=== PATIENT | female | born 1955 | race Hispanic/Latino ===

== ENCOUNTER 2016-04-27 07:20 | Outpatient (CLI) | payer OTHER ==
[2016-04-27] MEDS ORDERED: XYLOCAINE 1% 20 mL ONE (08:02)
--- NOTE | 2016-04-27 09:35 | Short Stay Summary ---
Invasive Assessment - Date Date of service: 04/27/16 - History & Physical Allergies/Adverse Reactions: Allergies codeine Adverse Reaction (Severe, Unverified 04/27/16 07:22) HALLUCINATIONS - Procedure Note Procedure: Left stereotactic biopsy with clip placement Findings: see path Pathology: list (core biopsy) Specimen disposition: to lab Estimated blood loss: none Tolerated Procedure Well: Yes Complications: none Invasive Assessment DC Note - Disposition Disposition: DISCHARGED TO HOME OR SELFCARE - Instructions Activity: no restrictions Additional Instructions: Use ice pack off and on today Follow up with: STACEY AMAYA DO [Primary Care Provider] - 7 Days LENCHO LAU MD [Staff Physician] - 7 Days
--- NOTE | 2016-04-27 11:03 | Operative Report ---
PREOPERATIVE DIAGNOSIS: Left breast upper inner quadrant abnormal microcalcifications. POSTOPERATIVE DIAGNOSIS: Left breast upper inner quadrant abnormal microcalcifications. PROCEDURE: Left breast stereotactic biopsy with Biomarc clip placement. TYPE OF ANESTHESIA: Local. SURGEON: Wanda Milton MD LOCATION: [facility]. APPROACH: ____ from above. INDICATIONS: This is a 60-year-old woman noted to have abnormal microcalcifications in the left upper inner quadrant of her breast. She required biopsy for diagnosis. DESCRIPTION OF PROCEDURE: The patient was brought to the stereotactic room and laid prone on the table. Her left breast was placed in compression. B[employer] Filling Machine Operator imaging was taken and the area of concern was visualized and the sterotactic imaging were obtained, and the lesion was visualized and was able to be targeted. The breast was then prepped in the usual fashion with Betadine. At the target site, 1% lidocaine was infiltrated at the skin level and the deeper tissue. Next, an 8 gauge mammotome was introduced. Stereotactic images confirmed the placement. The biopsy gun was then fired and again sterotactic images confirmed the placement. Next, circumferential biopsy was performed and core samples were taken. Specimen mammogram showed removal of the calcifications of concern. At this point, a Biomarc clip was then placed and stereotactic images confirmed the placement of the clip. The probe was then removed from the breast, Steri-Strips were applied and a sterile dressing was applied. The patient tolerated the procedure. There were no immediate complications. JOB# [id number] KENZIE/ELLEN
--- NOTE | 2016-04-27 13:10 | Mammography Report ---
Left stereotactic biopsy was performed by Dr. Milton. Please refer to operative report for more detail.
--- NOTE | 2016-04-27 13:12 | Mammography Report ---
LEFT DIGITAL DIAGNOSTIC MAMMOGRAM: 04/27/16 07:20:00 CLINICAL: For clip placement immediately status post stereotactic biopsy. COMPARISON:None available. FINDINGS: 2 biopsy clips are identified far posterior in the upper outer quadrant. IMPRESSION: Status post stereotactic biopsy with 2 localizer clips. BI-RADS CATEGORY: 4--Suspicious Pathology pending.
== END 2016-04-27 07:21 | disposition home or self-care (01) ==
LOC: MAMMO 07:20
PROVIDERS: ATTEND Surgery
DX: R92.0 Mammographic microcalcification found on diagnostic imaging of breast (principal)
CPT/HCPCS: 19081; 88305; A4648; G0206